=== PATIENT | male | born 1935 | race Caucasian/White ===

== ENCOUNTER 2019-01-03 06:03 | Day surgery (SDC) | payer MEDICARE, BC ==
[~2019-01-03 06:03] MED LIST: Gatifloxacin 0.5% Ophth Soln 2.5 ML Bot EYELF SCH; Sodium Chloride 0.9% 1,000 ML IV SCH; Sodium Chloride 0.9% 10 ML Syringe FLUSH PRN
[2019-01-03] MEDS: Cyclopentolate 1% Opth Soln 2 ML Bottle EYELF SCH ×3 (06:25→06:50)
[2019-01-03] MEDS: Phenylephrine 10% Ophth Soln 5 ML Bot EYELF SCH ×3 (06:30→06:55)
[2019-01-03] MEDS ORDERED: Water For Irrigation,Sterile 1,500 ML Container IRR ONE (07:40)
[2019-01-03] MEDS ORDERED: EPINEPHrine 1 MG/1 ML Amp ONE (07:41)
[2019-01-03] MEDS ORDERED: Carbachol 0.01% Intraocular 1.5 ML Vial EYELF ONE (07:41)
[2019-01-03] MEDS ORDERED: Balanced Salt Solution Ophth Irrig 15 ML Bottle EYELF ONE (07:41)
[2019-01-03] MEDS ORDERED: Balanced Salt Solution Plus Ophth Irrig 500 ML Bottle IOCULAR ONE (07:41)
[2019-01-03] MEDS ORDERED: Dexamethasone/Neomycin/Polymyxin B Ophth Oint 3.5 GM Tube EYELF ONE (07:42)
[2019-01-03] MEDS ORDERED: Lidocaine 2% with EPINEPHrine 1:100,000 20 ML MDV INJECT ONE (07:42)
[2019-01-03] MEDS ORDERED: Tetracaine HCl/PF 0.5% 4 ML Bottle EYEBOTH ONE (07:43)
[2019-01-03] MEDS ORDERED: Lidocaine 1% 10 ML MDV INJECT ONE (07:43)
[2019-01-03] MEDS ORDERED: Hyaluronate Sodium 1% 0.85 ML Syringe IOCULAR ONE ×2 (07:43)
[2019-01-03 08:23] VITALS: BP 184/64
--- NOTE | 2019-01-03 11:47 | OR ---
DATE OF SURGERY: 01/03/2019 SURGEON: Miguel Aponte MD PREOPERATIVE DIAGNOSIS: Cataract, left eye. POSTOPERATIVE DIAGNOSIS: Cataract, left eye. OPERATION PERFORMED: Phacoemulsification with posterior chamber lens insertion, left eye. HISTORY: The patient presents at this time with an increasing amount of difficulty seeing with the left eye as he attempts to drive. The left eye has a vision of 20/60 +1. 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 This eye has a combined cataract and a cataract of aging. OPERATIVE PROCEDURE: The patient was taken to the operating room where appropriate anesthesia, sedation, and monitoring were provided. A retrobulbar block was given on the left side. The eye was massaged and was found to be appropriately soft. The eye and eyelids were then prepped and draped in the usual sterile manner. A lid speculum was placed. A micro sharp blade was used to enter the anterior chamber inferior temporally and through this site, Xylocaine and then Healon were irrigated in the eye. Then using a 2.85 mm angled blade, an incision was made at the limbus temporally. Healon was irrigated in the eye. Then using a cystotome, the anterior capsulorrhexis was created. The lens nucleus was hydrodissected using a 27-gauge cannula and balanced salt solution. The phacoemulsification unit was introduced through the temporal site and the Trell spatula through the anterior temporal site. In so doing, the lens nucleus was phacoemulsified without difficulty. It was noted during this process that the pupil was becoming ever smaller. Therefore, Healon was irrigated in the eye again and a Malyugin ring of 6.25 mm size was placed to keep the pupil dilated. The cortical fragments of the lens were then removed using the irrigation aspiration unit. The posterior capsule was polished. Healon was irrigated in the eye. The posterior chamber lens was inserted and was rotated into position inside the capsular bag. The Malyugin ring was removed. The Healon was irrigated out of the eye. Miostat was irrigated in the eye and the pupil rounded nicely. Two interrupted 10-0 nylon sutures were placed through the temporal corneal incision site and an additional interrupted 10-0 nylon suture was placed through the inferior temporal corneal incision site. Balanced salt solution was irrigated in the eye. The wound was tested and found to be appropriately tight. Maxitrol ointment was placed in the patient's eye. The eyelids were closed and an eye patch and a Nair shield were placed. The patient left the operating in good condition. /[id number]/MODL
== END 2019-01-03 08:50 | disposition home or self-care (01) ==
LOC: KA.SDS 06:03
PROVIDERS: ATTEND Ophthalmology
DX: E11.36 Type 2 diabetes mellitus with diabetic cataract (principal); H25.812 Combined forms of age-related cataract, left eye; I10 Essential (primary) hypertension; E78.00 Pure hypercholesterolemia, unspecified; Z79.84 Long term (current) use of oral hypoglycemic drugs; Z79.82 Long term (current) use of aspirin; Z79.899 Other long term (current) drug therapy; Z87.891 Personal history of nicotine dependence
CPT/HCPCS: 82962; A9270-GY; J0171; J2001; J7030; V2632

== ENCOUNTER 2019-01-31 06:25 | Day surgery (SDC) | payer MEDICARE, BC ==
[2019-01-31] MEDS ORDERED: Gatifloxacin 0.5% Ophth Soln 2.5 ML Bot EYERT SCH (06:30)
[2019-01-31] MEDS ORDERED: Sodium Chloride 0.9% 10 ML Syringe FLUSH PRN (06:30)
[2019-01-31] MEDS ORDERED: Sodium Chloride 0.9% 1,000 ML IV SCH (06:30)
[2019-01-31] MEDS: Phenylephrine 10% Ophth Soln 5 ML Bot EYERT SCH ×3 (06:51→07:28)
[2019-01-31] MEDS: Cyclopentolate 1% Opth Soln 2 ML Bottle EYERT SCH ×3 (06:58→07:40)
[2019-01-31] MEDS ORDERED: Balanced Salt Solution Ophth Irrig 15 ML Bottle EYERT ONE (08:52)
[2019-01-31] MEDS ORDERED: Carbachol 0.01% Intraocular 1.5 ML Vial EYERT ONE (08:52)
[2019-01-31] MEDS ORDERED: Water For Irrigation,Sterile 1,500 ML Container IRR ONE (08:52)
[2019-01-31] MEDS ORDERED: Balanced Salt Solution Plus Ophth Irrig 500 ML Bottle IOCULAR ONE (08:52)
[2019-01-31] MEDS ORDERED: EPINEPHrine 1 MG/1 ML Amp ONE (08:53)
[2019-01-31] MEDS ORDERED: Lidocaine 1% 10 ML MDV INJECT ONE (08:54)
[2019-01-31] MEDS ORDERED: Dexamethasone/Neomycin/Polymyxin B Ophth Oint 3.5 GM Tube EYERT ONE (08:54)
[2019-01-31] MEDS ORDERED: Lidocaine 2% with EPINEPHrine 1:100,000 20 ML MDV INJECT ONE (08:54)
[2019-01-31] MEDS ORDERED: Hyaluronate Sodium 1% 0.85 ML Syringe IOCULAR ONE (08:55)
[2019-01-31] MEDS ORDERED: Tetracaine HCl/PF 0.5% 4 ML Bottle EYEBOTH ONE (08:55)
[2019-01-31 09:21] VITALS: PULSE 53
[2019-01-31 09:29] VITALS: BP 188/67
--- NOTE | 2019-01-31 10:38 | OR ---
DATE OF SURGERY: 01/31/2019 SURGEON: Miguel Aponte MD PREOPERATIVE DIAGNOSIS: Cataract, right eye. POSTOPERATIVE DIAGNOSIS: Cataract, right eye. OPERATION PERFORMED: Phacoemulsification with posterior chamber lens insertion, right eye. HISTORY: The patient presents at this time with an increasing amount of difficulty seeing to drive with the right eye. This eye has a vision of 20/50 - 2. The right lens has a 3+ nuclear sclerosis and 1+ cortical change and 2+ posterior subcapsular change. The eye has a combined cataract and a cataract of aging. FINDINGS: The patient was taken to the operating room where appropriate anesthesia, sedation and monitoring were provided. A retrobulbar block was given on the right side. The eye was massaged and was found to be appropriately soft. The eye and eyelids were then prepped and draped in the usual sterile manner. A lid speculum was placed. A micro sharp blade was used to enter the anterior chamber inside the limbus superior-temporally. Xylocaine was irrigated into the eye at this site. Healon was irrigated into the eye through this site. Then using a 2.85 mm corneal blade an entry was made into the anterior chamber just inside the limbus temporally. Healon was again irrigated into the eye. Then using a cystitome, the anterior capsulorrhexis was created. The lens nucleus was hydrodissected using a 27 gauge cannula and balanced salt solution. The phacoemulsification unit was introduced through the temporal site and the Trell spatula through the superior temporal site. In so doing, the lens nucleus was phacoemulsified. The cortical fragments of the lens were removed using the irrigation aspiration unit. The posterior capsule was polished. Healon was irrigated into the eye. The posterior chamber lens was inserted and rotated into position inside the capsular bag. The Healon was irrigated out of the eye. Miostat was irrigated into the eye and the pupil rounded nicely. A single interrupted 10-0 Nylon suture was placed through the temporal corneal incision site. Balanced salt solution was irrigated into the eye. The wound was tested and found to be tight. Maxitrol ointment was placed into the patient's right eye. The eyelids were closed and an eye patch and milton shield were placed. The patient left the operating room in good condition. /[id number]/MODL
== END 2019-01-31 09:45 | disposition home or self-care (01) ==
LOC: KA.SDS 06:25
PROVIDERS: ATTEND Ophthalmology
DX: E11.36 Type 2 diabetes mellitus with diabetic cataract (principal); H25.811 Combined forms of age-related cataract, right eye; I10 Essential (primary) hypertension; Z87.891 Personal history of nicotine dependence; Z79.84 Long term (current) use of oral hypoglycemic drugs; Z79.82 Long term (current) use of aspirin; Z79.899 Other long term (current) drug therapy
CPT/HCPCS: 82962; A9270-GY; J0171; J2001; J7030; V2632

== ENCOUNTER 2021-06-26 10:48 | Emergency (ER) | payer MEDICARE, BC ==
[2021-06-26] MEDS ORDERED: Sodium Chloride 0.9% 10 ML Syringe FLUSH PRN ×2 (11:03→11:04)
[2021-06-26 11:29] LABS: ANION GAP 12.3 mmol/L (5-15)
[2021-06-26 11:41] LABS: PTT,PARTIAL THROMBOPLSTIN TIME 24.4 SEC (22.8-31.4)
[2021-06-26 11:49] VITALS: PULSE 52
[2021-06-26 11:51] VITALS: BP 165/85
[2021-06-26] MEDS ORDERED: Alteplase 2 MG Vial IVPUSH ONE (12:05)
[2021-06-26] MEDS: ALTEPLASE IV STA (12:23)
[2021-06-26] MEDS: INFUSION IV STA (12:23)
== END 2021-06-26 13:05 ==
LOC: KA.ED 10:48
DX: I63.9 Cerebral infarction, unspecified (principal); I10 Essential (primary) hypertension; E11.9 Type 2 diabetes mellitus without complications; Z79.82 Long term (current) use of aspirin; Z79.84 Long term (current) use of oral hypoglycemic drugs; Z92.82 Status post administration of tPA (rtPA) in a different facility within the last 24 hours prior to admission to current facility
CPT/HCPCS: 36415; 37195; 70450; 71045; 80053; 83605; 84484; 85025; 85379; 85730; 93010; 99284; 99285-25; J2997

== ENCOUNTER 2021-07-01 13:11 | Inpatient (IN) | payer MEDICARE, BC ==
[2021-07-01] MEDS: Memantine 10 MG Tab PO SCH (20:20)
[2021-07-01] MEDS: Enoxaparin 40 MG/0.4 ML Syringe SUBCUT SCH (20:20)
[2021-07-02] MEDS: Aspirin 81 MG Tab.Chew PO SCH (08:41)
[2021-07-02] MEDS: Memantine 10 MG Tab PO SCH ×2 (08:41→23:22)
[2021-07-02] MEDS: metFORMIN 500 MG Tab.ER PO SCH (08:41)
[2021-07-02] MEDS: atorvaSTATin 40 MG Tab PO SCH (08:41)
[2021-07-02] MEDS: Atenolol 25 MG Tab PO SCH (08:45)
[2021-07-02] MEDS: amLODIPine 5 MG Tab PO SCH (08:47)
[2021-07-02] MEDS: Enoxaparin 40 MG/0.4 ML Syringe SUBCUT SCH (23:23)
[2021-07-03] MEDS: metFORMIN 500 MG Tab.ER PO SCH (08:08)
[2021-07-03] MEDS: atorvaSTATin 40 MG Tab PO SCH (08:09)
[2021-07-03] MEDS: Atenolol 25 MG Tab PO SCH (08:09)
[2021-07-03] MEDS: Aspirin 81 MG Tab.Chew PO SCH (08:09)
[2021-07-03] MEDS: amLODIPine 5 MG Tab PO SCH (08:09)
[2021-07-03] MEDS: Memantine 10 MG Tab PO SCH ×2 (08:10→20:01)
[2021-07-03] MEDS: Enoxaparin 40 MG/0.4 ML Syringe SUBCUT SCH (20:01)
[2021-07-04] MEDS: metFORMIN 500 MG Tab.ER PO SCH (08:10)
[2021-07-04] MEDS: Memantine 10 MG Tab PO SCH ×2 (08:10→20:43)
[2021-07-04] MEDS: Aspirin 81 MG Tab.Chew PO SCH (08:10)
[2021-07-04] MEDS: atorvaSTATin 40 MG Tab PO SCH (08:11)
[2021-07-04] MEDS: Atenolol 25 MG Tab PO SCH (08:11)
[2021-07-04] MEDS: amLODIPine 5 MG Tab PO SCH (08:12)
[2021-07-04] MEDS: Enoxaparin 40 MG/0.4 ML Syringe SUBCUT SCH (20:44)
[2021-07-05] MEDS: Acetaminophen 325 MG Tab PO PRN (00:38)
[2021-07-05] MEDS: Memantine 10 MG Tab PO SCH ×2 (08:30→20:06)
[2021-07-05] MEDS: amLODIPine 5 MG Tab PO SCH (08:30)
[2021-07-05] MEDS: Atenolol 25 MG Tab PO SCH (08:31)
[2021-07-05] MEDS: Aspirin 81 MG Tab.Chew PO SCH (08:31)
[2021-07-05] MEDS: metFORMIN 500 MG Tab.ER PO SCH (08:32)
[2021-07-05] MEDS: atorvaSTATin 40 MG Tab PO SCH (08:32)
[2021-07-05] MEDS: Enoxaparin 40 MG/0.4 ML Syringe SUBCUT SCH (20:07)
[2021-07-06] MEDS: Acetaminophen 325 MG Tab PO PRN ×2 (00:09→21:27)
[2021-07-06] MEDS: metFORMIN 500 MG Tab.ER PO SCH (08:19)
[2021-07-06] MEDS: atorvaSTATin 40 MG Tab PO SCH (08:19)
[2021-07-06] MEDS: Atenolol 25 MG Tab PO SCH (08:19)
[2021-07-06] MEDS: Aspirin 81 MG Tab.Chew PO SCH (08:19)
[2021-07-06] MEDS: amLODIPine 5 MG Tab PO SCH (08:20)
[2021-07-06] MEDS: Memantine 10 MG Tab PO SCH ×2 (08:20→20:06)
[2021-07-06] MEDS: Enoxaparin 40 MG/0.4 ML Syringe SUBCUT SCH (20:07)
[2021-07-07] MEDS: amLODIPine 5 MG Tab PO SCH (08:06)
[2021-07-07] MEDS: Aspirin 81 MG Tab.Chew PO SCH (08:06)
[2021-07-07] MEDS: Atenolol 25 MG Tab PO SCH (08:07)
[2021-07-07] MEDS: atorvaSTATin 40 MG Tab PO SCH (08:07)
[2021-07-07] MEDS: metFORMIN 500 MG Tab.ER PO SCH (08:07)
[2021-07-07] MEDS: Memantine 10 MG Tab PO SCH ×2 (08:08→21:06)
[2021-07-07] MEDS: Bisacodyl 5 MG Tab PO PRN (16:11)
[2021-07-07] MEDS: Enoxaparin 40 MG/0.4 ML Syringe SUBCUT SCH (21:06)
[2021-07-08] MEDS: metFORMIN 500 MG Tab.ER PO SCH (08:06)
[2021-07-08] MEDS: Aspirin 81 MG Tab.Chew PO SCH (08:06)
[2021-07-08] MEDS: atorvaSTATin 40 MG Tab PO SCH (08:07)
[2021-07-08] MEDS: Memantine 10 MG Tab PO SCH ×2 (08:07→20:03)
[2021-07-08] MEDS: amLODIPine 5 MG Tab PO SCH (08:09)
[2021-07-08] MEDS: Atenolol 25 MG Tab PO SCH (08:09)
[2021-07-08] MEDS: Enoxaparin 40 MG/0.4 ML Syringe SUBCUT SCH (20:03)
[2021-07-09] MEDS: Atenolol 25 MG Tab PO SCH (08:09)
[2021-07-09] MEDS: atorvaSTATin 40 MG Tab PO SCH (08:09)
[2021-07-09] MEDS: metFORMIN 500 MG Tab.ER PO SCH (08:10)
[2021-07-09] MEDS: amLODIPine 5 MG Tab PO SCH (08:10)
[2021-07-09] MEDS: Memantine 10 MG Tab PO SCH ×2 (08:10→20:18)
[2021-07-09] MEDS: Aspirin 81 MG Tab.Chew PO SCH (08:11)
[2021-07-09] MEDS: Enoxaparin 40 MG/0.4 ML Syringe SUBCUT SCH (20:22)
[2021-07-10] MEDS: Atenolol 25 MG Tab PO SCH (08:23)
[2021-07-10] MEDS: metFORMIN 500 MG Tab.ER PO SCH (08:23)
[2021-07-10] MEDS: Memantine 10 MG Tab PO SCH ×3 (08:23→20:00)
[2021-07-10] MEDS: atorvaSTATin 40 MG Tab PO SCH (08:23)
[2021-07-10] MEDS: amLODIPine 5 MG Tab PO SCH (08:23)
[2021-07-10] MEDS: Aspirin 81 MG Tab.Chew PO SCH (08:23)
[2021-07-10] MEDS: Enoxaparin 40 MG/0.4 ML Syringe SUBCUT SCH ×2 (19:12→19:59)
[2021-07-11] MEDS: metFORMIN 500 MG Tab.ER PO SCH (08:02)
[2021-07-11] MEDS: atorvaSTATin 40 MG Tab PO SCH (09:15)
[2021-07-11] MEDS: amLODIPine 5 MG Tab PO SCH (09:15)
[2021-07-11] MEDS: Aspirin 81 MG Tab.Chew PO SCH (09:15)
[2021-07-11] MEDS: Memantine 10 MG Tab PO SCH ×2 (09:15→20:51)
[2021-07-11] MEDS: Atenolol 25 MG Tab PO SCH (09:16)
[2021-07-11] MEDS: Enoxaparin 40 MG/0.4 ML Syringe SUBCUT SCH (20:51)
[2021-07-12] MEDS: metFORMIN 500 MG Tab.ER PO SCH (08:13)
[2021-07-12] MEDS: Aspirin 81 MG Tab.Chew PO SCH (08:13)
[2021-07-12] MEDS: atorvaSTATin 40 MG Tab PO SCH (08:14)
[2021-07-12] MEDS: Atenolol 25 MG Tab PO SCH (08:14)
[2021-07-12] MEDS: amLODIPine 5 MG Tab PO SCH (08:14)
[2021-07-12] MEDS: Memantine 10 MG Tab PO SCH ×2 (08:14→21:50)
[2021-07-12] MEDS: Enoxaparin 40 MG/0.4 ML Syringe SUBCUT SCH (21:50)
[2021-07-12] MEDS: Bisacodyl 5 MG Tab PO PRN (22:08)
[2021-07-13] MEDS: Aspirin 81 MG Tab.Chew PO SCH (08:41)
[2021-07-13] MEDS: atorvaSTATin 40 MG Tab PO SCH (08:41)
[2021-07-13] MEDS: metFORMIN 500 MG Tab.ER PO SCH (08:41)
[2021-07-13] MEDS: Atenolol 25 MG Tab PO SCH (08:42)
[2021-07-13] MEDS: amLODIPine 5 MG Tab PO SCH (08:42)
[2021-07-13] MEDS: Memantine 10 MG Tab PO SCH ×3 (08:43→20:17)
[2021-07-13] MEDS: Enoxaparin 40 MG/0.4 ML Syringe SUBCUT SCH ×2 (19:25→20:17)
[2021-07-13] MEDS: Bisacodyl 5 MG Tab PO PRN (19:25)
[2021-07-14] MEDS: Aspirin 81 MG Tab.Chew PO SCH (08:40)
[2021-07-14] MEDS: Memantine 10 MG Tab PO SCH ×2 (08:41→21:34)
[2021-07-14] MEDS: atorvaSTATin 40 MG Tab PO SCH (08:41)
[2021-07-14] MEDS: metFORMIN 500 MG Tab.ER PO SCH (08:41)
[2021-07-14] MEDS: Atenolol 25 MG Tab PO SCH (08:42)
[2021-07-14] MEDS: amLODIPine 5 MG Tab PO SCH (08:43)
[2021-07-14] MEDS: Enoxaparin 40 MG/0.4 ML Syringe SUBCUT SCH (21:34)
[2021-07-15] MEDS: amLODIPine 5 MG Tab PO SCH (08:38)
[2021-07-15] MEDS: Memantine 10 MG Tab PO SCH ×2 (08:39→20:27)
[2021-07-15] MEDS: Aspirin 81 MG Tab.Chew PO SCH (08:39)
[2021-07-15] MEDS: atorvaSTATin 40 MG Tab PO SCH (08:39)
[2021-07-15] MEDS: metFORMIN 500 MG Tab.ER PO SCH (08:39)
[2021-07-15] MEDS: Atenolol 25 MG Tab PO SCH (10:39)
[2021-07-15] MEDS: Enoxaparin 40 MG/0.4 ML Syringe SUBCUT SCH (20:29)
[2021-07-16] MEDS: Memantine 10 MG Tab PO SCH ×2 (08:43→20:44)
[2021-07-16] MEDS: Aspirin 81 MG Tab.Chew PO SCH (08:43)
[2021-07-16] MEDS: atorvaSTATin 40 MG Tab PO SCH (08:43)
[2021-07-16] MEDS: metFORMIN 500 MG Tab.ER PO SCH (08:44)
[2021-07-16] MEDS: amLODIPine 5 MG Tab PO SCH (08:44)
[2021-07-16] MEDS: Atenolol 25 MG Tab PO SCH (08:44)
[2021-07-16] MEDS: Enoxaparin 40 MG/0.4 ML Syringe SUBCUT SCH (20:44)
[2021-07-17] MEDS: amLODIPine 5 MG Tab PO SCH (08:22)
[2021-07-17] MEDS: Aspirin 81 MG Tab.Chew PO SCH (08:22)
[2021-07-17] MEDS: Memantine 10 MG Tab PO SCH ×2 (08:22→21:09)
[2021-07-17] MEDS: metFORMIN 500 MG Tab.ER PO SCH (08:22)
[2021-07-17] MEDS: atorvaSTATin 40 MG Tab PO SCH (08:22)
[2021-07-17] MEDS: Atenolol 25 MG Tab PO SCH (08:23)
[2021-07-17] MEDS: Enoxaparin 40 MG/0.4 ML Syringe SUBCUT SCH (21:11)
[2021-07-18] MEDS: Memantine 10 MG Tab PO SCH ×2 (08:14→19:59)
[2021-07-18] MEDS: metFORMIN 500 MG Tab.ER PO SCH (08:15)
[2021-07-18] MEDS: Atenolol 25 MG Tab PO SCH (08:15)
[2021-07-18] MEDS: amLODIPine 5 MG Tab PO SCH (08:15)
[2021-07-18] MEDS: atorvaSTATin 40 MG Tab PO SCH (08:15)
[2021-07-18] MEDS: Aspirin 81 MG Tab.Chew PO SCH (08:16)
[2021-07-18] MEDS: Bisacodyl 5 MG Tab PO PRN (19:59)
[2021-07-18] MEDS: Enoxaparin 40 MG/0.4 ML Syringe SUBCUT SCH (19:59)
[2021-07-19] MEDS: atorvaSTATin 40 MG Tab PO SCH (09:50)
[2021-07-19] MEDS: Aspirin 81 MG Tab.Chew PO SCH (09:50)
[2021-07-19] MEDS: amLODIPine 5 MG Tab PO SCH (09:51)
[2021-07-19] MEDS: Memantine 10 MG Tab PO SCH ×2 (09:51→20:00)
[2021-07-19] MEDS: metFORMIN 500 MG Tab.ER PO SCH (09:51)
[2021-07-19] MEDS: Atenolol 25 MG Tab PO SCH (09:51)
[2021-07-19] MEDS: Enoxaparin 40 MG/0.4 ML Syringe SUBCUT SCH (20:00)
[2021-07-20] MEDS: amLODIPine 5 MG Tab PO SCH (09:52)
[2021-07-20] MEDS: atorvaSTATin 40 MG Tab PO SCH (09:55)
[2021-07-20] MEDS: metFORMIN 500 MG Tab.ER PO SCH (09:57)
[2021-07-20] MEDS: Memantine 10 MG Tab PO SCH ×2 (09:59→20:13)
[2021-07-20] MEDS: Aspirin 81 MG Tab.Chew PO SCH (10:02)
[2021-07-20] MEDS: Atenolol 25 MG Tab PO SCH (10:10)
[2021-07-20] MEDS: Enoxaparin 40 MG/0.4 ML Syringe SUBCUT SCH (20:13)
[2021-07-21] MEDS: Memantine 10 MG Tab PO SCH ×2 (09:05→21:34)
[2021-07-21] MEDS: metFORMIN 500 MG Tab.ER PO SCH (09:05)
[2021-07-21] MEDS: amLODIPine 5 MG Tab PO SCH (09:05)
[2021-07-21] MEDS: atorvaSTATin 40 MG Tab PO SCH (09:06)
[2021-07-21] MEDS: Atenolol 25 MG Tab PO SCH (09:06)
[2021-07-21] MEDS: Aspirin 81 MG Tab.Chew PO SCH (09:06)
[2021-07-21] MEDS: Enoxaparin 40 MG/0.4 ML Syringe SUBCUT SCH (21:34)
[2021-07-22] MEDS: Aspirin 81 MG Tab.Chew PO SCH (09:36)
[2021-07-22] MEDS: amLODIPine 5 MG Tab PO SCH (09:36)
[2021-07-22] MEDS: Atenolol 25 MG Tab PO SCH (09:36)
[2021-07-22] MEDS: atorvaSTATin 40 MG Tab PO SCH (09:37)
[2021-07-22] MEDS: metFORMIN 500 MG Tab.ER PO SCH (09:37)
[2021-07-22] MEDS: Memantine 10 MG Tab PO SCH ×2 (09:37→20:20)
[2021-07-22] MEDS: Bisacodyl 5 MG Tab PO PRN (16:30)
[2021-07-22] MEDS: Enoxaparin 40 MG/0.4 ML Syringe SUBCUT SCH (20:20)
[2021-07-23] MEDS: atorvaSTATin 40 MG Tab PO SCH (10:16)
[2021-07-23] MEDS: Memantine 10 MG Tab PO SCH ×2 (10:17→20:18)
[2021-07-23] MEDS: amLODIPine 5 MG Tab PO SCH (10:17)
[2021-07-23] MEDS: Aspirin 81 MG Tab.Chew PO SCH (10:17)
[2021-07-23] MEDS: Atenolol 25 MG Tab PO SCH (10:17)
[2021-07-23] MEDS: metFORMIN 500 MG Tab.ER PO SCH (10:19)
[2021-07-23] MEDS: Enoxaparin 40 MG/0.4 ML Syringe SUBCUT SCH (20:18)
[2021-07-24] MEDS: amLODIPine 5 MG Tab PO SCH (08:54)
[2021-07-24] MEDS: atorvaSTATin 40 MG Tab PO SCH (08:54)
[2021-07-24] MEDS: Aspirin 81 MG Tab.Chew PO SCH (08:55)
[2021-07-24] MEDS: metFORMIN 500 MG Tab.ER PO SCH (08:55)
[2021-07-24] MEDS: Memantine 10 MG Tab PO SCH ×2 (08:55→20:16)
[2021-07-24] MEDS: Atenolol 25 MG Tab PO SCH (08:56)
[2021-07-24] MEDS: Enoxaparin 40 MG/0.4 ML Syringe SUBCUT SCH (20:17)
[2021-07-25] MEDS: amLODIPine 5 MG Tab PO SCH (11:33)
[2021-07-25] MEDS: Aspirin 81 MG Tab.Chew PO SCH (11:33)
[2021-07-25] MEDS: metFORMIN 500 MG Tab.ER PO SCH (11:34)
[2021-07-25] MEDS: atorvaSTATin 40 MG Tab PO SCH (11:34)
[2021-07-25] MEDS: Atenolol 25 MG Tab PO SCH (11:34)
[2021-07-25] MEDS: Memantine 10 MG Tab PO SCH ×2 (11:35→20:22)
[2021-07-25] MEDS: Enoxaparin 40 MG/0.4 ML Syringe SUBCUT SCH (20:21)
[2021-07-26] MEDS: Aspirin 81 MG Tab.Chew PO SCH (09:02)
[2021-07-26] MEDS: Memantine 10 MG Tab PO SCH ×2 (09:02→20:15)
[2021-07-26] MEDS: metFORMIN 500 MG Tab.ER PO SCH (09:02)
[2021-07-26] MEDS: atorvaSTATin 40 MG Tab PO SCH (09:02)
[2021-07-26] MEDS: amLODIPine 5 MG Tab PO SCH (09:03)
[2021-07-26] MEDS: Atenolol 25 MG Tab PO SCH (09:04)
[2021-07-26] MEDS: Enoxaparin 40 MG/0.4 ML Syringe SUBCUT SCH (20:15)
[2021-07-27] MEDS: Bisacodyl 5 MG Tab PO PRN (11:35)
[2021-07-27] MEDS: Memantine 10 MG Tab PO SCH ×2 (11:35→20:18)
[2021-07-27] MEDS: Aspirin 81 MG Tab.Chew PO SCH (11:35)
[2021-07-27] MEDS: amLODIPine 5 MG Tab PO SCH (11:36)
[2021-07-27] MEDS: atorvaSTATin 40 MG Tab PO SCH (11:36)
[2021-07-27] MEDS: Atenolol 25 MG Tab PO SCH (11:36)
[2021-07-27] MEDS: metFORMIN 500 MG Tab.ER PO SCH (11:36)
[2021-07-27] MEDS: Enoxaparin 40 MG/0.4 ML Syringe SUBCUT SCH (20:19)
[2021-07-28] MEDS: Memantine 10 MG Tab PO SCH ×2 (11:30→20:03)
[2021-07-28] MEDS: atorvaSTATin 40 MG Tab PO SCH (11:31)
[2021-07-28] MEDS: Atenolol 25 MG Tab PO SCH (11:31)
[2021-07-28] MEDS: Aspirin 81 MG Tab.Chew PO SCH (11:31)
[2021-07-28] MEDS: amLODIPine 5 MG Tab PO SCH (11:31)
[2021-07-28] MEDS: metFORMIN 500 MG Tab.ER PO SCH (11:31)
[2021-07-28] MEDS: Enoxaparin 40 MG/0.4 ML Syringe SUBCUT SCH (20:03)
[2021-07-29] MEDS: Memantine 10 MG Tab PO SCH ×2 (10:06→20:07)
[2021-07-29] MEDS: Aspirin 81 MG Tab.Chew PO SCH (10:06)
[2021-07-29] MEDS: metFORMIN 500 MG Tab.ER PO SCH (10:06)
[2021-07-29] MEDS: atorvaSTATin 40 MG Tab PO SCH (10:06)
[2021-07-29] MEDS: amLODIPine 5 MG Tab PO SCH (10:08)
[2021-07-29] MEDS: Atenolol 25 MG Tab PO SCH (10:09)
[2021-07-29] MEDS: Enoxaparin 40 MG/0.4 ML Syringe SUBCUT SCH (20:07)
[2021-07-30] MEDS: metFORMIN 500 MG Tab.ER PO SCH (10:27)
[2021-07-30] MEDS: atorvaSTATin 40 MG Tab PO SCH (10:27)
[2021-07-30] MEDS: Aspirin 81 MG Tab.Chew PO SCH (10:28)
[2021-07-30] MEDS: Atenolol 25 MG Tab PO SCH (10:28)
[2021-07-30] MEDS: Memantine 10 MG Tab PO SCH ×2 (10:28→20:16)
[2021-07-30] MEDS: amLODIPine 5 MG Tab PO SCH (10:28)
[2021-07-30] MEDS: Enoxaparin 40 MG/0.4 ML Syringe SUBCUT SCH (20:16)
[2021-07-31] MEDS: Aspirin 81 MG Tab.Chew PO SCH (09:16)
[2021-07-31] MEDS: atorvaSTATin 40 MG Tab PO SCH (09:16)
[2021-07-31] MEDS: metFORMIN 500 MG Tab.ER PO SCH (09:16)
[2021-07-31] MEDS: Memantine 10 MG Tab PO SCH ×2 (09:16→20:59)
[2021-07-31] MEDS: Atenolol 25 MG Tab PO SCH (09:17)
[2021-07-31] MEDS: amLODIPine 5 MG Tab PO SCH (09:17)
[2021-07-31] MEDS: Enoxaparin 40 MG/0.4 ML Syringe SUBCUT SCH (20:59)
[2021-08-01] MEDS ORDERED: amLODIPine 5 MG Tab PO ONE (09:23)
[2021-08-01] MEDS: Polyethylene Glycol 3350 Powder 17 GM Packet PO SCH (10:01)
[2021-08-01] MEDS: amLODIPine 5 MG Tab PO SCH (10:05)
[2021-08-01] MEDS: Memantine 10 MG Tab PO SCH ×2 (10:06→20:12)
[2021-08-01] MEDS: Aspirin 81 MG Tab.Chew PO SCH (10:06)
[2021-08-01] MEDS: metFORMIN 500 MG Tab.ER PO SCH (10:06)
[2021-08-01] MEDS: Atenolol 25 MG Tab PO SCH (10:06)
[2021-08-01] MEDS: atorvaSTATin 40 MG Tab PO SCH (10:07)
[2021-08-02] MEDS: Memantine 10 MG Tab PO SCH ×2 (10:04→20:18)
[2021-08-02] MEDS: atorvaSTATin 40 MG Tab PO SCH (10:04)
[2021-08-02] MEDS: Polyethylene Glycol 3350 Powder 17 GM Packet PO SCH (10:04)
[2021-08-02] MEDS: amLODIPine 5 MG Tab PO SCH (10:05)
[2021-08-02] MEDS: Atenolol 25 MG Tab PO SCH (10:05)
[2021-08-02] MEDS: Aspirin 81 MG Tab.Chew PO SCH (10:05)
[2021-08-02] MEDS: metFORMIN 500 MG Tab.ER PO SCH (10:06)
[2021-08-03] MEDS: Polyethylene Glycol 3350 Powder 17 GM Packet PO SCH (10:17)
[2021-08-03] MEDS: metFORMIN 500 MG Tab.ER PO SCH (10:19)
[2021-08-03] MEDS: atorvaSTATin 40 MG Tab PO SCH (10:19)
[2021-08-03] MEDS: Aspirin 81 MG Tab.Chew PO SCH (10:19)
[2021-08-03] MEDS: Memantine 10 MG Tab PO SCH ×2 (10:19→20:43)
[2021-08-03] MEDS: amLODIPine 5 MG Tab PO SCH (10:19)
[2021-08-03] MEDS: Atenolol 25 MG Tab PO SCH (10:19)
[2021-08-04 07:42] LABS: CHLORIDE,CL 101 mmol/L (98-107); SODIUM,NA 137 mmol/L (136-145)
[2021-08-04] MEDS: Aspirin 81 MG Tab.Chew PO SCH (09:52)
[2021-08-04] MEDS: Polyethylene Glycol 3350 Powder 17 GM Packet PO SCH (09:52)
[2021-08-04] MEDS: Memantine 10 MG Tab PO SCH ×2 (09:52→20:11)
[2021-08-04] MEDS: amLODIPine 5 MG Tab PO SCH (09:52)
[2021-08-04] MEDS: atorvaSTATin 40 MG Tab PO SCH (09:52)
[2021-08-04] MEDS: metFORMIN 500 MG Tab.ER PO SCH (09:52)
[2021-08-04] MEDS: Atenolol 25 MG Tab PO SCH (09:53)
[2021-08-05] MEDS: Atenolol 25 MG Tab PO SCH (08:38)
[2021-08-05] MEDS: metFORMIN 500 MG Tab.ER PO SCH (08:38)
[2021-08-05] MEDS: atorvaSTATin 40 MG Tab PO SCH (08:39)
[2021-08-05] MEDS: Memantine 10 MG Tab PO SCH (08:39)
[2021-08-05] MEDS: Aspirin 81 MG Tab.Chew PO SCH (08:39)
[2021-08-05] MEDS: amLODIPine 5 MG Tab PO SCH (08:39)
[2021-08-05 08:40] VITALS: BP 154/67
[2021-08-05] MEDS: Polyethylene Glycol 3350 Powder 17 GM Packet PO SCH (08:46)
[2021-08-05 08:54] VITALS: PULSE 62
== END 2021-08-05 13:20 | DRG 948 ==
LOC: KA.MS 13:11
PROVIDERS: ADMIT Nurse Practitioner Family; ATTEND Family Medicine
DX: R53.81 Other malaise (principal); E46 Unspecified protein-calorie malnutrition; F05 Delirium due to known physiological condition; Z86.73 Personal history of transient ischemic attack (TIA), and cerebral infarction without residual deficits; I10 Essential (primary) hypertension; Z66 Do not resuscitate; Z51.5 Encounter for palliative care; D64.9 Anemia, unspecified; K59.00 Constipation, unspecified; I65.21 Occlusion and stenosis of right carotid artery; I35.0 Nonrheumatic aortic (valve) stenosis; E78.5 Hyperlipidemia, unspecified; F03.90 Unspecified dementia, unspecified severity, without behavioral disturbance, psychotic disturbance, mood disturbance, and anxiety; M19.90 Unspecified osteoarthritis, unspecified site; R73.03 Prediabetes; H54.7 Unspecified visual loss; Z96.651 Presence of right artificial knee joint; Z68.21 Body mass index [BMI] 21.0-21.9, adult; Z79.84 Long term (current) use of oral hypoglycemic drugs; Z79.82 Long term (current) use of aspirin; Z79.899 Other long term (current) drug therapy; Z79.4 Long term (current) use of insulin; Z98.49 Cataract extraction status, unspecified eye
CPT/HCPCS: 36415; 80069; 85025; 97110-GO; 97110-GP; 97112-GP; 97116-GP; 97162-GP; 97530-GO; 97535-GO; A9270-GY; J1650

== ENCOUNTER 2021-09-03 15:12 | Emergency (ER) | payer MEDICARE, BC ==
[2021-09-03 18:20] LABS: ANION GAP 16.6 mmol/L (5-15)
[2021-09-03] MEDS ORDERED: Ibuprofen 600 MG Tab PO ONE (18:38)
[2021-09-03] MEDS ORDERED: Acetaminophen 500 MG Tab PO ONE (18:38)
[2021-09-03] MEDS ORDERED: HYDROmorphone 1 MG/ML Syringe IVPUSH ONE (20:14)
[2021-09-03] MEDS ORDERED: HYDROmorphone 1 MG/ML Syringe ONE (20:14)
[2021-09-03 22:41] VITALS: BP 140/78; PULSE 68
== END 2021-09-03 20:35 ==
LOC: KA.ED 15:12
DX: S72.002A Fracture of unspecified part of neck of left femur, initial encounter for closed fracture (principal); I10 Essential (primary) hypertension; E11.9 Type 2 diabetes mellitus without complications; Z86.73 Personal history of transient ischemic attack (TIA), and cerebral infarction without residual deficits; Z79.82 Long term (current) use of aspirin; Z79.84 Long term (current) use of oral hypoglycemic drugs; Z79.899 Other long term (current) drug therapy; W05.0XXA Fall from non-moving wheelchair, initial encounter
CPT/HCPCS: 36415; 71045; 80048; 81001; 85025; 96374; 99284; 99285-25; J1170

== ENCOUNTER 2024-03-30 14:34 | Emergency (ER) | payer BC, MEDICARE ==
[2024-03-30] MEDS: Ketorolac 30 MG/ML SDV IM ONE (16:10)
[2024-03-30 18:01] VITALS: BP 177/68; PULSE 72
== END 2024-03-30 16:41 ==
LOC: KA.ED 14:34
DX: M54.50 Low back pain, unspecified (principal); M16.11 Unilateral primary osteoarthritis, right hip; I10 Essential (primary) hypertension; M19.90 Unspecified osteoarthritis, unspecified site; E78.00 Pure hypercholesterolemia, unspecified; E11.9 Type 2 diabetes mellitus without complications; Z79.82 Long term (current) use of aspirin; Z79.899 Other long term (current) drug therapy; W19.XXXA Unspecified fall, initial encounter
CPT/HCPCS: 71045; 72100; 72170; 96372; 99283; J1885